=== PATIENT | male | born 1955 | race Caucasian/White ===

== ENCOUNTER 2020-06-18 05:22 | Day surgery (SDC) | payer MEDICARE, OTHER ==
[2020-06-18] MEDS ORDERED: Lactated Ringers 1,000 ML IV SCH (06:00)
[2020-06-18] MEDS ORDERED: Nozin Nasal Sanitizer NASBOTH ONE (06:30)
[2020-06-18] MEDS ORDERED: Bupivacaine 0.5% 30 ML SDV ONE (06:35)
[2020-06-18] MEDS ORDERED: Povidone-Iodine 10% Soln 118.25 ML Bottle ONE (06:35)
[2020-06-18] MEDS ORDERED: fentaNYL 100 MCG/2 ML SDV ONE (07:25)
[2020-06-18] MEDS ORDERED: Midazolam 1 MG/ML 2 ML SDV ONE ×2 (07:25→08:35)
[2020-06-18] MEDS ORDERED: Propofol 200 MG/20 ML SDV ONE (07:25)
[2020-06-18] MEDS ORDERED: ceFAZolin 2 GM in Premix Bag 1 BAG IV ONE (07:30)
[2020-06-18] MEDS ORDERED: Lactated Ringers 1,000 ML ONE (08:17)
[2020-06-18] MEDS ORDERED: Morphine 2 MG/ML SYRINGE IVPUSH PRN (09:35)
[2020-06-18] MEDS ORDERED: Acetaminophen/oxyCODONE 325-5 MG Tab PO PRN (09:35)
[2020-06-18] MEDS ORDERED: Acetaminophen 325 MG Tab PO PRN (09:35)
[2020-06-18] MEDS ORDERED: Ondansetron 4 MG/2 ML SDV IVPUSH PRN (09:35)
[2020-06-18] MEDS ORDERED: Sodium Chloride 0.9% 1,000 ML IV SCH (09:45)
[2020-06-18] MEDS ORDERED: ceFAZolin 1 GM in Sodium Chloride 0.9% 50 ML IV SCH (09:45)
[2020-06-18] MEDS: Acetaminophen/HYDROcodone 325-5 MG Tab PO PRN ×2 (11:09→17:42)
[2020-06-18] MEDS: Ketorolac 30 MG/ML SDV IVPUSH SCH ×2 (12:49→20:57)
--- NOTE | 2020-06-18 13:04 | CR ---
Knee 1V or 2V Lt CLINICAL HISTORY: Postop arthroplasty FINDINGS: Patient is status post the left medial hemiarthroplasty. Components appear well seated. There is intra-articular air. Impression: Status post op left knee hemiarthroplasty
[2020-06-18] MEDS: ceFAZolin 1 GM in Premix Bag 1 BAG IV SCH ×2 (15:08→23:07)
[2020-06-18] MEDS: Docusate Sodium 100 MG Cap PO SCH (20:57)
[2020-06-19] MEDS: Acetaminophen/HYDROcodone 325-5 MG Tab PO PRN ×3 (00:20→13:05)
[2020-06-19] MEDS: Ketorolac 30 MG/ML SDV IVPUSH SCH ×2 (04:03→11:36)
[2020-06-19] MEDS: ceFAZolin 1 GM in Premix Bag 1 BAG IV SCH (06:41)
[2020-06-19] MEDS: Docusate Sodium 100 MG Cap PO SCH (08:24)
--- NOTE | 2020-06-19 12:34 | PCM.DCSUM1 ---
Discharge Summary - Hospital Course Diagnosis: Stroke: No Modified Swain Scale: No Symptoms at All Modified Swain Scale Score: 0 - Discharge Data Discharge Date: 06/19/20 Discharge Disposition: Home, Self-Care 01 Condition: Good - Referral to Home Health Date of Face to Face Encounter: 06/19/20 Primary Care Physician: PCP None - Patient Summary/Data Operative Procedure(s) Performed: Left medial unicompartmental arthroplasty Complications: none Consults: Consultations 06/18/20 09:35 Consult to Case Management/Autoc[employer] [CONS] Routine Comment: Physician Instructions: Service(s) to be Consulted: Case Management Reason for Consult: Plan for Discharge PT Evaluation and Treatment [CONS] Routine Please Evaluate and Treat. PT Reason for Consult: Post op Ortho Surgery This query below is only for informational purposes and is not editable. PT Evaluation and Treatment [CONS] Routine Please Evaluate and Treat. PT Reason for Consult: Post op Ortho Surgery Knee Pending Discharge: Yes, 1- 2 days Special Instructions: Schedule first outpatient PT appointment in 3-5 day post discharge. This query below is only for informational purposes and is not editable. Hospital Course: Admitted following left knee arthroplasty. Did very well overnight, no complications. Tolerating po meds and pain is well controlled. Has been up in halls and transferring in and out of bed without difficulty. Dressing was removed prior to discharge, no drainage, mild swelling. Plan discharge to home with outpatient PT. Follow up in two weeks. - Patient Instructions Diet: Usual Diet as Tolerated Activity: Apply Ice, As Tolerated, Full Weight Bearing Driving, Other: May drive when not taking narcotic medication Showering/Bathing: Shower in AM Wound/Incision Care: Keep Operative Site/Wound Site Clean and Dry Notify Provider of: Fever, Increased Pain, Swelling and Redness, Drainage Other/Special Instructions: Aspirin one twice a day - Discharge Plan *PRESCRIPTION DRUG MONITORING PROGRAM REVIEWED*: No *COPY OF PRESCRIPTION DRUG MONITORING REPORT IN PATIENT NATASHA: No Prescriptions/Med Rec: oxyCODONE HCl/Acetaminophen [Percocet 5-325 mg Tablet] 1 - 2 each PO Q6HR PRN #40 tablet PRN Reason: Pain Home Medications: Home Meds oxyCODONE HCl/Acetaminophen [Percocet 5-325 mg Tablet] 1 - 2 each PO Q6HR PRN #40 tablet 06/19/20 [Rx] Oxygen Therapy Mode: Room Air - Discharge Summary/Plan Comment DC Time >30 min.: No - General Info Functional Status: Reports: Pain Controlled, Tolerating Diet, Ambulating, Urinating - Review of Systems General: Reports: No Symptoms HEENT: Reports: No Symptoms Pulmonary: Reports: No Symptoms Cardiovascular: Reports: No Symptoms Gastrointestinal: Reports: No Symptoms Genitourinary: Reports: No Symptoms Musculoskeletal: Reports: Foot Pain, Joint Swelling Skin: Reports: No Symptoms Neurological: Reports: No Symptoms Psychiatric: Reports: No Symptoms - Patient Data Vitals - Most Recent: Last Vital Signs Temp 36.3 C 06/19/20 11:00 Pulse 65 06/19/20 11:00 Resp 16 06/19/20 11:00 BP 123/78 06/19/20 11:00 Pulse Ox 96 06/19/20 11:00 Weight - Most Recent: 122.425 kg I&O - Last 24 hours: Intake & Output 06/18/20 06/19/20 06/19/20 22:59 06:59 14:59 Intake Total 290 555 Balance 290 555 Med Orders - Current: Current Medications Acetaminophen (Tylenol) 650 mg PO Q4H PRN PRN Reason: Pain/Fever Hydrocodone Bitart/Acetaminophen ([place] 325-5 Mg) 2 tab PO Q4H PRN PRN Reason: Pain (mild 1-3) Last Admin: 06/19/20 08:14 Dose: 2 tab Documented by: Docusate Sodium (Colace) 100 mg PO BID [facility] Last Admin: 06/19/20 08:24 Dose: 100 mg Documented by: Lactated Ringer's (Ringers, Lactated) 1,000 mls @ 75 mls/hr IV ASDIRECTED [facility] Last Admin: 06/18/20 06:14 Dose: 75 mls/hr Documented by: Sodium Chloride (Normal Saline) 1,000 mls @ 125 mls/hr IV ASDIRECTED [facility] Ketorolac Tromethamine (Toradol) 30 mg IVPUSH Q8H [facility] Stop: 06/20/20 04:01 Last Admin: 06/19/20 11:36 Dose: 30 mg Documented by: Morphine Sulfate (Morphine) 2 mg IVPUSH Q1H PRN PRN Reason: Breakthrough Pain Ondansetron HCl (Zofran) 4 mg IVPUSH Q6H PRN PRN Reason: Nausea/Vomiting Oxycodone/Acetaminophen (Percocet 325-5 Mg) 1 - 2 tab PO Q4H PRN PRN Reason: Pain Discontinued Medications Bandage/Support Products ( Nasal Wire Puller) 1 applic NASBOTH ONETIME ONE Stop: 06/18/20 06:31 Last Admin: 06/18/20 06:11 Dose: 1 applic Documented by: Bupivacaine HCl (Marcaine 0.5%) Confirm Administered Dose 30 ml .ROUTE .STK-MED ONE Stop: 06/18/20 06:36 Fentanyl (Sublimaze) Confirm Administered Dose 100 mcg .ROUTE .STK-MED ONE Stop: 06/18/20 07:26 Cefazolin Sodium/Dextrose 2 gm (/ Premix) 50 mls @ 100 mls/hr IV ONETIME ONE Stop: 06/18/20 07:59 Last Admin: 06/18/20 07:48 Dose: 100 mls/hr Documented by: Lactated Ringer's (Ringers, Lactated) Confirm Administered Dose 1,000 mls @ as directed .ROUTE .STK-MED ONE Stop: 06/18/20 08:18 Cefazolin Sodium 1 gm/ Sodium (Chloride) 50 mls @ 200 mls/hr IV Q8H [facility] Stop: 06/18/20 09:45 Cefazolin Sodium/Dextrose 1 gm (/ Premix) 50 mls @ 200 mls/hr IV Q8H [facility] Stop: 06/19/20 06:14 Last Admin: 06/19/20 06:41 Dose: 200 mls/hr Documented by: Midazolam HCl (Versed 1 Mg/Ml) Confirm Administered Dose 2 mg .ROUTE .STK-MED ONE Stop: 06/18/20 07:26 Midazolam HCl (Versed 1 Mg/Ml) Confirm Administered Dose 2 mg .ROUTE .STK-MED ONE Stop: 06/18/20 08:36 Povidone Iodine (Betadine 10% Soln) Confirm Administered Dose 1 ml .ROUTE .STK- MED ONE Stop: 06/18/20 06:36 Last Admin: 06/18/20 08:28 Dose: 40 ml Documented by: Propofol (Diprivan 20 Ml) Confirm Administered Dose 200 mg .ROUTE .STK-MED ONE Stop: 06/18/20 07:26 - Exam General: Reports: Alert, Oriented HEENT: Reports: Pupils Equal, Pupils Reactive, EOMI, Mucous Membr. Moist/[place] Neck: Reports: Supple Lungs: Reports: Clear to Auscultation, Normal Respiratory Effort Cardiovascular: Reports: Regular Rate, Regular Rhythm GI/Abdominal Exam: Normal Bowel Sounds, Soft, Non-Tender, No Distention (Male) Exam: Deferred Rectal (Males) Exam: Deferred Back Exam: Reports: Normal Inspection Extremities: Joint Swelling, Limited Range of Motion Skin: Reports: Warm, Dry Wound/Incisions: Reports: Healing Well, No Drainage Neurological: Reports: No New Focal Deficit Psy/Mental Status: Reports: Alert, Normal Affect, Normal Mood
--- NOTE | 2020-06-20 17:07 | OR ---
DATE OF PROCEDURE: 06/18/2020 SURGEON: Fermin Fontaine MD PREOPERATIVE DIAGNOSIS: Osteoarthritis, left knee. POSTOPERATIVE DIAGNOSIS: Osteoarthritis, left knee. PROCEDURE: Left medial unicompartmental arthroplasty utilizing ZUK components with a size F femur, size 4 tibia, and 11 mm polyethylene. ANESTHESIA: Spinal with sedation. INDICATIONS: Heather is a very pleasant 64-year-old gentleman with a history of progressive pain and medial collapse of his left knee over the past couple of years. He has failed conservative treatment, now presents for a medial unicompartmental arthroplasty. Risks, benefits, potential complications of the procedure were discussed. PROCEDURE IN DETAIL: After adequate anesthesia was obtained, the patient was placed supine with a tourniquet about the left upper thigh. Left leg was prepped and draped in a sterile fashion. Leg was exsanguinated and tourniquet inflated to 300 mmHg pressure. Anterior incision was made just slightly medial of midline to the superior pole of patella. Carried down through the subcutaneous tissues, and a medial parapatellar arthrotomy was performed. Anterior horn of the medial meniscus was excised and a medial release was performed due to varus collapse. Inspection of medial condyle reveals loss of articular cartilage. Patellofemoral joint shows full-thickness articular cartilage intact in the patella with some very minor chondromalacia of the trochlear groove. The anterior lip of the tibia was removed with an oscillating saw. The extramedullary alignment guide was placed, this was aligned and secured. Distal femoral cut was then made. Distal femoral guide was removed. The knee was flexed and the proximal tibia was then resected with a combination of oscillating and reciprocating saws. Remaining meniscus was excised. Evaluation of the flexion-extension gaps showed this to be somewhat tight with an 8 mm spacer and the tibia was recut. The femur was sized to an F component. Cutting jig was secured. Remaining cuts were made as were the drill holes for the pegs. The tibia was sized to a 4 component. This was pinned in place and drill holes were made for the pegs and a trial reduction was made with a 10 mm insert. This did show some very mild laxity with the 2 mm spacing guide. The trials were removed. The knee was thoroughly irrigated with pulse lavage. Surfaces were dried. The components were cemented in place. Excess cement was removed and the knee was held in full extension with the trial insert and the spacing gap as the cement cured. The knee was trialed with the 10 and 11 mm spacers with 11 mm trial providing good balance in flexion and extension with a 2 mm gap. Trial was removed. The knee was irrigated once again. The final polyethylene was snapped into position. Knee was irrigated with a dilute Betadine solution followed by saline and closed with a #2 Ethibond in a running fashion, 2-0 Vicryl, and a running 3-0 Monocryl. Steri-Strips were applied. The wound was covered with Xeroform gauze, sterile dressing, and a light compressive Samuel wrap. The patient tolerated the procedure well. There were no complications, taken from the operating room in stable condition. Fermin Fontaine MD /[id number]
== END 2020-06-19 14:39 | disposition home or self-care (01) ==
LOC: JP.SDS 05:22 → JP.MS 09:35 → JP.SDS 06-19 14:39
PROVIDERS: ATTEND Specialist
DX: M17.12 Unilateral primary osteoarthritis, left knee (principal); M22.42 Chondromalacia patellae, left knee; Z87.891 Personal history of nicotine dependence
CPT/HCPCS: 27446; 73560; 97110; 97116; 97161; 97530; 97535; A9270; C1713; C1776; J0690; J1885; J2250; J2704; J3010; J7120; J3490

== ENCOUNTER 2022-02-28 20:38 | Emergency (ER) | payer MEDICARE ==
[2022-02-28] MEDS ORDERED: Bacitracin Oint 1 GM U/D Packet TOP ONE (21:33)
== END 2022-02-28 21:50 | disposition home or self-care (01) ==
LOC: JP.ED 20:38
DX: S69.92XA Unspecified injury of left wrist, hand and finger(s), initial encounter (principal); Z86.16 Personal history of COVID-19; Z90.49 Acquired absence of other specified parts of digestive tract; Z79.899 Other long term (current) drug therapy; Z79.82 Long term (current) use of aspirin; W45.8XXA Other foreign body or object entering through skin, initial encounter
CPT/HCPCS: 99281; 99283